=== PATIENT | female | born 1970 | race Caucasian/White ===

== ENCOUNTER 2016-08-25 17:40 | Inpatient (IN) | payer OTHER ==
--- NOTE | ~2016-08-25 | DS ---
Discharge Summary [address] [place]. [address] NAME: JAYCEE ZAVALETA : 74 STATUS : DIS IN PAT#: [id number] AGE: 46 ADM/REG DATE : 08/25/16 MR#: [id number] REPORT SERV DATE: 09/01/16 DICTATED BY: PETE ZAMORA DATE: 08/29/16 REPORT STATUS : Draft TRANSCRIBED BY: MODL DATE: 08/29/16 ADMISSION DATE: 08/25/2016 DISCHARGE DATE: 08/29/2016 REASON FOR ADMISSION: Direct admission from [facility] for sepsis, UTI, and healthcare associated pneumonia. HISTORY OF PRESENT ILLNESS: Please refer to my history and physical dated 08/25/2016, for complete details regarding the patient's admission. The patient was admitted to the Hospitalist Service for management of her sepsis, UTI, and healthcare associated pneumonia. HOSPITAL COURSE: The patient had an uncomplicated hospital course. She had a grossly abnormal urinalysis at [facility]. She was already started on antibiotics. She was transferred over to our facility for further care as [place] was maxed out. She was continued on IV antibiotics. A urine culture was sent after she had gotten a couple doses of IV antibiotics. Final urine culture grew out greater than 20,000 urine colonies. Her mental status had markedly improved. She was slightly encephalopathic, could be secondary to the benzos and narcotics she was receiving at [facility] versus her sepsis. At any rate, it had returned back to baseline rather quickly. CT scan of the chest without contrast was done which showed elevation of the right hemidiaphragm, atelectasis, and consolidation in the right middle lobe and right lower lobe. She was started on broad- spectrum antibiotics. Blood cultures were obtained and after 4 days of growth, there has been four days of culture. There has been no growth today. She did also have acute kidney injury on CKD, stage III, which has resolved. Her creatinine is back down to her baseline of around 1.9. The wound VAC was continued. The patient has reached maximal hospitalization and will be discharged today in stable condition. DISCHARGE DIAGNOSES: 1. Sepsis secondary to urinary tract infection now resolved. 2. Healthcare associated pneumonia, improving. 3. Acute kidney injury on CKD, stage 3, now resolved. 4. Osteomyelitis status post amputation with a wound VAC. 5. Stable bipolar on 800 mg of Seroquel, stable. 6. Chronic pain syndrome, on narcotics, stable, generalized anxiety disorder on benzodiazepines. 7. Insulin-dependent diabetes. PROCEDURES: Include CT scan of the chest without contrast. Renal ultrasound. DISCHARGE MEDICATIONS: Include Norvasc 10 mg at bedtime; aspirin 81 mg daily; carvedilol 12.5 mg twice a day; gabapentin 900 mg daily; insulin sliding scale, insulin Glargine 5 units at bedtime; Seroquel 800 mg once at bedtime; Coumadin 7 mg with an INR goal of 2 to 3; Ativan 0.5 mg twice a day p.r.n.; doxycycline 100 mg twice a day for 7 days; Ceftin 500 mg twice a day for 7 days; and Percocet 7.5 mg every six hours as needed for pain. FOLLOWUP: The patient will follow up with Dr. Hannah and Vascular Surgery who had performed Discharge Summary [address] [address] NAME: JAYCEE ZAVALETA : 74 STATUS : DIS IN PAT#: [id number] AGE: 46 ADM/REG DATE : 08/25/16 MR#: [id number] REPORT SERV DATE: 09/01/16 DICTATED BY: PETE ZAOMRA DATE: 08/29/16 REPORT STATUS : Draft TRANSCRIBED BY: OMAR DATE: 08/29/16 her amputation as scheduled. The patient will be discharged today in stable condition to [facility] for rehab and wound care. Spending over 30 minutes discharge planning and coordination of care on this patient. ADDENDUM The patient has a known DVT that was diagnosed in June 2016 at [facility]. She will need to be on anticoagulation for at least three to six months. She will be discharged with her home regimen of Coumadin. HAROLDO/OMAR Pete Zamora MD / [id number] CC: MD LISET Chandler
--- NOTE | ~2016-08-25 | HP ---
History And Physical [address] [address] NAME: JAYCEE ZAVALETA : 74 STATUS : ADM IN [facility]#: [id number] AGE: 46 ADM/REG DATE : 08/25/16 MR#: [id number] REPORT SERV DATE: 08/25/16 DICTATED BY: PETE SANTANA DATE: 08/25/16 REPORT STATUS : Draft TRANSCRIBED BY: MODL DATE: 08/25/16 DATE OF ADMISSION: 08/25/2016 REASON FOR ADMISSION: Direct admission from [facility] ER for urinary tract infection, pneumonia, and acute kidney injury. CHIEF COMPLAINT: "I have been having burning urination." HISTORY OF PRESENT ILLNESS: A 46-year-old white female with a history of coronary artery disease, type 2 diabetes, osteomyelitis status post amputation, history of DVT with a history of being on Coumadin but not currently for unknown reasons, was recently transferred from [facility] to [facility]. We have records dating back in July where it was noted that the patient had a nonhealing wound status post amputation for osteomyelitis followed by Dr. Hannah, currently with a wound VAC. She had presented back to [facility] from August 13 to August 18 for healthcare associated pneumonia where she had a V/Q scan which showed possible left lobe process. She was discharged by Dr. Vegas from [facility] with wound VAC and Levaquin. She had been in that facility for approximately a week now and developed a fever of greater than 102, dysuria, tachycardia, and slurred speech. In the ER, she was noted to be found to have a urinary tract infection. A portable chest x-ray showed bilateral infiltrates. She was given a dose of antibiotics and the hospitalist over [facility] did not feel comfortable treating her for UTI and pneumonia and acute kidney injury and therefore transfer was requested. Unfortunately, [facility] was maximum capacity and therefore [facility] had contacted [facility] for a transfer. The patient is a poor historian. Does not remember how long she has been at that facility. She does confirm that she is a diabetic. She does admit to having a burning sensation. She did mention something about having to be catheterized; however, she does not typically need catheterization. REVIEW OF SYSTEMS: As per HPI, otherwise, the patient denies any chest pain, shortness of breath, CVA tenderness, or constipation. PAST MEDICAL HISTORY: 1. Coronary artery disease. 2. Type 2 diabetes. 3. Osteomyelitis. 4. Prior MSSA to the right metatarsal; MRSA to a sternal wound. 5. DVT. 6. CKD stage 3. 7. Hypertension. PAST SURGICAL HISTORY: She had a CABG; a wound debridement; right foot amputation; cholecystectomy; C5-C6 anterior fusion; mid foot amputation approximately three months ago and discharged to [facility] for wound management along with IV vancomycin via PICC line. History And Physical [address] [address] NAME: JAYCEE ZAVALETA : 74 STATUS : ADM IN [facility]#: [id number] AGE: 46 ADM/REG DATE : 08/25/16 MR#: [id number] REPORT SERV DATE: 08/25/16 DICTATED BY: PETE SANTANA DATE: 08/25/16 REPORT STATUS : Draft TRANSCRIBED BY: OMAR DATE: 08/25/16 SOCIAL HISTORY: She denies any tobacco, alcohol, or illicit drug abuse. She is a caregiver for disabled patients. She lives in [place]. Not . FAMILY HISTORY: Mother had coronary artery disease. Father had diabetes. ALLERGIES: CODEINE, ZOFRAN, PENICILLIN, AND ZOSYN. MEDICATIONS: At the facility 1. Ativan 1 mg p.r.n. 2. Coreg 12.5 mg once daily. 3. Gabapentin 900 mg three times a day. 4. Lantus subcu daily. 5. Norvasc 10 mg daily. 6. NovoLog 4 times a day. 7. Seroquel 800 mg daily. She is noted to be not on Coumadin. PHYSICAL EXAMINATION: VITAL SIGNS: Blood pressure is 110/74, saturating 91% on 2 L, and temperature is 99. GENERAL: She is no acute distress. She is alert, has some sluggish speech, seems to be overmedicated. HEENT: Normocephalic, atraumatic head. Extraocular muscles intact. Oropharynx clear. NECK: Supple. No JVD. CARDIAC: Regular rhythm. No murmurs, rubs, or gallops. PULMONARY: Diminished breath sounds, especially at the bases with some mild crackles. No wheezing. ABDOMEN: Soft, nontender, nondistended. Positive bowel sounds. EXTREMITIES: Show no clubbing, no cyanosis. She does have a right mid foot amputation with a wound VAC. NEUROLOGIC: No focal deficits. : No CVA tenderness. SKIN: Warm and dry. LABS: Show white blood cell count of 8.8, hemoglobin 8.3, hematocrit 27, and platelet of 269. Sodium is 133, potassium 4.8, chloride 100, CO2 of 21, BUN 51, creatinine 2.9, glucose 157, albumin 2.6, AST 18, and ALT 14. UA shows negative nitrites, very positive leukocyte esterase, 1000 wbc's, and many wbc clusters. Chest x-ray shows bilateral infiltrates from outside facility. IMPRESSION: 1. Healthcare associated pneumonia. 2. Sepsis secondary to urinary tract infection. 3. Bipolar on Seroquel. 4. Osteomyelitis status post amputation with a wound VAC. 5. Type 2 diabetes with neuropathy. 6. Morbid obesity. 7. Acute kidney injury on CKD, stage III. 8. History of DVT. Unsure as to why she is not currently on Coumadin. History And Physical [address] [address] NAME: JAYCEE ZAVALETA : 74 STATUS : ADM IN [facility]#: [id number] AGE: 46 ADM/REG DATE : 08/25/16 MR#: [id number] REPORT SERV DATE: 08/25/16 DICTATED BY: PETE SANTANA DATE: 08/25/16 REPORT STATUS : Draft TRANSCRIBED BY: OMAR DATE: 08/25/16 9. Hypoalbuminemia. PLAN: The plan is to do a healthcare associated pneumonia treatment with vancomycin and cefepime. We will obtain a CT scan of her chest without contrast. Obtain a urinalysis with culture. Check a renal ultrasound. Wound Care to continue her wound VAC. Check a procalcitonin. Continue her Seroquel. Hold her narcotics. Start her on Coumadin. Obtain a sputum culture. Obtain coags. Decrease her dose of gabapentin. DISPOSITION: Hopefully back to [facility] for rehab in about [id number] days. HAROLDO/OMAR Pete Santana MD / [id number] CC: Pete Santana MD
[2016-08-25 20:23] LABS: INTERNATIONAL NORMAL RATI 1.8 UNITS (-); PROTIME (NOT ORD) 20.4 SEC (12.0-14.5)
[2016-08-25 20:24] LABS: PARTIAL THROMBO TIME 36.7 SEC (22.5-37.2)
[2016-08-25 20:52] LABS: PROCALCITONIN 0.16 ng/mL (<0.5)
[2016-08-25] MEDS ORDERED: SEROQUEL XR400 MG PO (21:01)
[2016-08-25] MEDS ORDERED: LANTUS (21:01)
[2016-08-25] MEDS ORDERED: *UNABLE2 (21:01)
[2016-08-25 21:20] LABS: BASOPHILS 0.1 %; BASOPHILS ABSOLUTE 0.01 10/3/uL (0.0-0.16); EOSINOPHILS 0 %; HEMATOCRIT 23.4 % (36.0-48.0); HEMOGLOBIN 7.6 g/dL (12.0-16.0); IMMATURE GRANULOCYTES 0.1 %; IMMATURE GRANULOCYTES ABSOLUTE 0.01 10/3/uL (0.0-0.11); LYMPHOCYTES 44.6 %; LYMPHOCYTES ABSOLUTE 3.46 10/3/uL (0.67-4.30); MEAN CORPUS HGB CONC 32.5 g/dL (32.0-36.0); MEAN CORPUSCULAR HEMOGLOB 25.9 pg (26.0-34.0); MEAN CORPUSCULAR VOLUME 79.9 fL (80-100); MEAN PLATELET VOLUME 10.1 fL (9.2-13.0); MONOCYTES 10.5 %; MONOCYTES ABSOLUTE 0.81 10/3/uL (0.21-1.20); NEUTROPHILS 44.7 %; NEUTROPHILS ABSOLUTE 3.46 10/3/uL (2.02-8.40); PLATELET COUNT 258 10/3/uL (150-400); RBC DISTRIBUTION WIDTH 15.5 % (12.0-16.0); RED CELL COUNT 2.93 10/6/uL (4.0-5.6); WHITE BLOOD CELLS 7.8 10/3/uL (4.5-10.5)
[2016-08-25 21:22] LABS: MANUAL DIFF NO %
[2016-08-25 21:47] LABS: ALBUMIN 2.4 G/DL (3.5-5.0); ALKALINE PHOSPHATASE 58 U/L (45-117); BUN (BLOOD UREA NITROGEN) 52 MG/DL (6-23); CHLORIDE, SERUM 105 MMOL/L (96-112); CO2 (CARBON DIOXIDE) 26 MMOL/L (24-34); GFR AFRICAN AMERICAN 25 ML/MIN (>=60); GFR NON AFRICAN AMERICAN 22 ML/MIN (>=60); GLUCOSE, SERUM 115 MG/DL (60-99); POTASSIUM, SERUM 4.4 MMOL/L (3.5-5.3); SGOT(AST) 17 U/L (5-40); SGPT(ALT) 18 U/L (5-65); SODIUM, SERUM 136 MMOL/L (135-148); TOTAL BILIRUBIN 0.2 MG/DL (0-1.2); TOTAL PROTEIN 7.2 G/DL (6.0-8.5)
[2016-08-25 21:48] LABS: DIRECT BILIRUBIN < 0.1 MG/DL (0.0-0.4); INDIRECT BILIRUBIN(NOT ORDER) 0.1 MG/DL (0.1-0.9)
[2016-08-26 05:36] LABS: BASOPHILS 0.2 %; BASOPHILS ABSOLUTE 0.01 10/3/uL (0.0-0.16); EOSINOPHILS 3.6 %; HEMATOCRIT 22.5 % (36.0-48.0); HEMOGLOBIN 7.5 g/dL (12.0-16.0); IMMATURE GRANULOCYTES 0.2 %; IMMATURE GRANULOCYTES ABSOLUTE 0.01 10/3/uL (0.0-0.11); LYMPHOCYTES 41.3 %; LYMPHOCYTES ABSOLUTE 2.27 10/3/uL (0.67-4.30); MEAN CORPUS HGB CONC 33.3 g/dL (32.0-36.0); MEAN CORPUSCULAR HEMOGLOB 26.3 pg (26.0-34.0); MEAN CORPUSCULAR VOLUME 78.9 fL (80-100); MEAN PLATELET VOLUME 9.6 fL (9.2-13.0); MONOCYTES 7.8 %; MONOCYTES ABSOLUTE 0.43 10/3/uL (0.21-1.20); NEUTROPHILS 46.9 %; NEUTROPHILS ABSOLUTE 2.57 10/3/uL (2.02-8.40); PLATELET COUNT 219 10/3/uL (150-400); RBC DISTRIBUTION WIDTH 15.7 % (12.0-16.0); RED CELL COUNT 2.85 10/6/uL (4.0-5.6); WHITE BLOOD CELLS 5.5 10/3/uL (4.5-10.5)
[2016-08-26 05:41] LABS: MANUAL DIFF NO %
[2016-08-26 05:42] LABS: INTERNATIONAL NORMAL RATI 1.8 UNITS (-); PROTIME (NOT ORD) 20.9 SEC (12.0-14.5)
[2016-08-26 05:57] LABS: CALCIUM, SERUM 8.1 MG/DL (8.5-10.4); CHLORIDE, SERUM 105 MMOL/L (96-112); CO2 (CARBON DIOXIDE) 25 MMOL/L (24-34); CREATININE 2.54 MG/DL (0.55-1.02); GFR AFRICAN AMERICAN 26 ML/MIN (>=60); GFR NON AFRICAN AMERICAN 22 ML/MIN (>=60); GLUCOSE, SERUM 111 MG/DL (60-99); PHOSPHORUS, SERUM 4.6 MG/DL (2.5-4.5); SODIUM, SERUM 139 MMOL/L (135-148)
[2016-08-26 06:00] LABS: BUN (BLOOD UREA NITROGEN) 56 MG/DL (6-23)
[2016-08-26] MEDS ORDERED: C1 PO (09:57)
[2016-08-26] MEDS ORDERED: LEVAQUIN750 MG PO (10:10)
[2016-08-26] MEDS ORDERED: ASAB PO (10:11)
[2016-08-26] MEDS ORDERED: COREG12 PO (10:11)
[2016-08-26] MEDS ORDERED: SEROQUEL400 MG PO (10:12)
[2016-08-26] MEDS ORDERED: ATV1 PO (10:12)
[2016-08-26] MEDS ORDERED: NEUR300 PO (10:12)
[2016-08-26] MEDS ORDERED: ROXICODONE15 MG PO (10:13)
[2016-08-26] MEDS ORDERED: NOVOLOG SC (10:13)
[2016-08-26] MEDS ORDERED: PERCOCET 7.5/321 TAB PO (10:13)
[2016-08-26] MEDS ORDERED: LANTUS SC (10:14)
[2016-08-26] MEDS ORDERED: NORV10 PO (10:17)
[2016-08-26 18:07] LABS: ASCORBIC ACID (UR NOT ORDER) NEG (NEG); BILIRUBIN, URINE NEGATIVE (NEG); KETONE, URINE NEGATIVE (NEG); LEUKOCYTE ESTERASE(NOT OR LARGE (NEG)
[2016-08-26 18:16] LABS: WBC (NOT ORDERED) (RFLEX) > 182 (0-5)
[2016-08-27 06:20] LABS: BASOPHILS 0.2 %; BASOPHILS ABSOLUTE 0.01 10/3/uL (0.0-0.16); EOSINOPHILS 5.7 %; EOSINOPHILS ABSOLUTE 0.29 10/3/uL (0.0-0.53); HEMATOCRIT 21.9 % (36.0-48.0); HEMOGLOBIN 7.1 g/dL (12.0-16.0); IMMATURE GRANULOCYTES 0.2 %; IMMATURE GRANULOCYTES ABSOLUTE 0.01 10/3/uL (0.0-0.11); LYMPHOCYTES 32.4 %; LYMPHOCYTES ABSOLUTE 1.66 10/3/uL (0.67-4.30); MEAN CORPUS HGB CONC 32.4 g/dL (32.0-36.0); MEAN CORPUSCULAR HEMOGLOB 25.9 pg (26.0-34.0); MEAN CORPUSCULAR VOLUME 79.9 fL (80-100); MEAN PLATELET VOLUME 10.2 fL (9.2-13.0); MONOCYTES 8.6 %; MONOCYTES ABSOLUTE 0.44 10/3/uL (0.21-1.20); NEUTROPHILS 52.9 %; NEUTROPHILS ABSOLUTE 2.72 10/3/uL (2.02-8.40); PLATELET COUNT 203 10/3/uL (150-400); RBC DISTRIBUTION WIDTH 15.7 % (12.0-16.0); RED CELL COUNT 2.74 10/6/uL (4.0-5.6); WHITE BLOOD CELLS 5.1 10/3/uL (4.5-10.5)
[2016-08-27 06:21] LABS: MANUAL DIFF NO %
[2016-08-27 06:22] LABS: INTERNATIONAL NORMAL RATI 1.9 UNITS (-); PROTIME (NOT ORD) 21.6 SEC (12.0-14.5)
[2016-08-27 06:31] LABS: BUN (BLOOD UREA NITROGEN) 54 MG/DL (6-23); CALCIUM, SERUM 7.4 MG/DL (8.5-10.4); CHLORIDE, SERUM 109 MMOL/L (96-112); CO2 (CARBON DIOXIDE) 25 MMOL/L (24-34); CREATININE 2.17 MG/DL (0.55-1.02); GFR AFRICAN AMERICAN 31 ML/MIN (>=60); GFR NON AFRICAN AMERICAN 27 ML/MIN (>=60); GLUCOSE, SERUM 106 MG/DL (60-99); POTASSIUM, SERUM 4.2 MMOL/L (3.5-5.3); SODIUM, SERUM 141 MMOL/L (135-148)
[2016-08-28 06:33] LABS: BASOPHILS 0.4 %; BASOPHILS ABSOLUTE 0.02 10/3/uL (0.0-0.16); EOSINOPHILS 6.6 %; EOSINOPHILS ABSOLUTE 0.36 10/3/uL (0.0-0.53); HEMATOCRIT 23.2 % (36.0-48.0); HEMOGLOBIN 7.5 g/dL (12.0-16.0); IMMATURE GRANULOCYTES 0.4 %; IMMATURE GRANULOCYTES ABSOLUTE 0.02 10/3/uL (0.0-0.11); LYMPHOCYTES 38.3 %; MEAN CORPUS HGB CONC 32.3 g/dL (32.0-36.0); MEAN CORPUSCULAR HEMOGLOB 25.6 pg (26.0-34.0); MEAN CORPUSCULAR VOLUME 79.2 fL (80-100); MEAN PLATELET VOLUME 10.7 fL (9.2-13.0); MONOCYTES 9.3 %; MONOCYTES ABSOLUTE 0.51 10/3/uL (0.21-1.20); NEUTROPHILS ABSOLUTE 2.47 10/3/uL (2.02-8.40); PLATELET COUNT 261 10/3/uL (150-400); RBC DISTRIBUTION WIDTH 15.6 % (12.0-16.0); RED CELL COUNT 2.93 10/6/uL (4.0-5.6); WHITE BLOOD CELLS 5.5 10/3/uL (4.5-10.5)
[2016-08-28 06:37] LABS: MANUAL DIFF NO %
[2016-08-28 06:39] LABS: INTERNATIONAL NORMAL RATI 1.9 UNITS (-); PROTIME (NOT ORD) 21.6 SEC (12.0-14.5)
[2016-08-28 06:54] LABS: BUN (BLOOD UREA NITROGEN) 45 MG/DL (6-23); CALCIUM, SERUM 8.3 MG/DL (8.5-10.4); CHLORIDE, SERUM 110 MMOL/L (96-112); CO2 (CARBON DIOXIDE) 24 MMOL/L (24-34); CREATININE 1.91 MG/DL (0.55-1.02); GFR AFRICAN AMERICAN 36 ML/MIN (>=60); GFR NON AFRICAN AMERICAN 31 ML/MIN (>=60); GLUCOSE, SERUM 101 MG/DL (60-99); PHOSPHORUS, SERUM 3.1 MG/DL (2.5-4.5); SODIUM, SERUM 143 MMOL/L (135-148)
[2016-08-29 07:48] LABS: PROTIME (NOT ORD) 22.9 SEC (12.0-14.5)
== END 2016-08-29 11:14 | DRG 871 ==
LOC: 5SO 17:40
PROVIDERS: Internal Medicine
DX: A41.9 Sepsis, unspecified organism (principal); J18.9 Pneumonia, unspecified organism; E11.22 Type 2 diabetes mellitus with diabetic chronic kidney disease; N17.9 Acute kidney failure, unspecified; N18.3 Chronic kidney disease, stage 3 (moderate); E11.40 Type 2 diabetes mellitus with diabetic neuropathy, unspecified; N39.0 Urinary tract infection, site not specified; I25.10 Atherosclerotic heart disease of native coronary artery without angina pectoris; I12.9 Hypertensive chronic kidney disease with stage 1 through stage 4 chronic kidney disease, or unspecified chronic kidney disease; F31.9 Bipolar disorder, unspecified; G89.4 Chronic pain syndrome; Z68.36 Body mass index [BMI] 36.0-36.9, adult; E66.01 Morbid (severe) obesity due to excess calories; Z86.718 Personal history of other venous thrombosis and embolism; Z95.1 Presence of aortocoronary bypass graft; Z89.431 Acquired absence of right foot; Z88.0 Allergy status to penicillin; Z88.5 Allergy status to narcotic agent; Z79.4 Long term (current) use of insulin
CPT/HCPCS: 71250; 76775; 80048; 80076; 80202; 81001; 82962; 83605; 83735; 84100; 84145; 85025; 85610; 85730; 87040; 87086; 97116-GP; 97162-GP; A9270-GY; J0692; J0780; J3370; P9047